=== PATIENT | female | born 2000 | race African-American/Black ===

== ENCOUNTER 2023-07-24 05:28 | Emergency (ER) | payer OTHER ==
[~2023-07-24] VITALS: Ht 177.8 cm; Wt 100.0 kg
[2023-07-24 05:31] VITALS: O2SAT 99
[2023-07-24] MEDS: IBUPROFEN 600MG TABLET PO ONE (06:17)
[2023-07-24] MEDS ORDERED: CYCL25PO15 MT (07:49)
[2023-07-24] MEDS ORDERED: IBUP-2029 MT (07:49)
[2023-07-24 08:22] VITALS: BP 135/78; PULSE 98; RESP 22; TEMP 98.8
== END 2023-07-24 08:24 | disposition home or self-care (01) ==
LOC: ER 05:28
DX: M79.605 Pain in left leg (principal); R07.89 Other chest pain; V49.40XA Driver injured in collision with unspecified motor vehicles in traffic accident, initial encounter; Y93.89 Activity, other specified; Y92.89 Other specified places as the place of occurrence of the external cause; Y99.8 Other external cause status
CPT/HCPCS: 71045; 73590; 99284